=== PATIENT | female | born 1980 | race Two or more races ===

== ENCOUNTER → 2018-05-08 10:12 | Outpatient (CLI) | payer OTHER, SELFPAY ==
--- NOTE | 2018-05-08 10:19 | US_ITS ---
US soft tissue head and neck Ordering Physician: Brenda Trevino MD Patient Age: 37 years: Female HISTORY: ITS.REASON: LYMPHADENOPATHY OF HEAD AND NECK Palpable nodule at the right neck, one year TECHNIQUE: Ultrasound performed the neck with attention to the palpable area at the right neck COMPARISON :None FINDINGS . The palpable area corresponds with a lymph node appearing structure. This fairly benign-appearing node measured 1.2 cm in length x 1 cm transverse X 0.65 cm. AP Relatively minimal medullary fat evident but overall compatible with a benign lymph node. Cortex measures up to 3 mm thickness. If this palpable area should progress suggest follow-up ultrasound study in 3-[address] neck with contrast. Axial CT-provides a better overview of the neck to exclude other or other nodes or other features.. The right parotid glands appears homogeneous, measuring up to 3.4 cm in length as 1.3 cm AP. Right Submandibular gland of 3.5 cm x 1.2 cm. IMPRESSION: The palpable areas right neck corresponds with a moderate size lymph node measure up to 1.2 cm length x 0.65 cm AP. Overall reasonably benign-appearing lymph node. Can be followed . If this area should progress a follow-up study either ultrasound neck or CT neck be suggested 3-4 months.
== END ==
PROVIDERS: PCP Family Medicine; Visit Provider Family Medicine
DX: R59.1 Generalized enlarged lymph nodes (principal)
CPT/HCPCS: 76536

== ENCOUNTER → 2018-07-10 08:26 | Outpatient (CLI) | payer BC, SELFPAY ==
--- NOTE | 2018-07-10 08:31 | US_ITS ---
US abdomen limited History:Right upper quadrant pain Ordering Physician:Teddy Lao MD Patient Age: 37 years Comparison:None Findings: Pancreas:Unremarkable. No obvious mass or abnormal fluid collection. No ductal dilatation Liver:Unremarkable. No obvious mass or abnormal fluid collection. No ductal dilatation Right Kidney:Unremarkable. Normal size and echogenicity. No hydronephrosis Gallbladder:There are multiple gallstones present. No gallbladder wall thickening, pericholecystic fluid, or biliary dilatation is evident. The gallbladder is slightly distended at 11 x 3 cm. IMPRESSION: Cholelithiasis with mildly distended gallbladder.
== END ==
PROVIDERS: PCP Family Medicine; Visit Provider Family Medicine
DX: R10.11 Right upper quadrant pain (principal)
CPT/HCPCS: 76705

== ENCOUNTER → 2018-10-20 17:32 | Outpatient (CLI) | payer BC, SELFPAY ==
[2018-10-20 18:13] LABS: Basophils % 0.5 % (0.1-2.0); Eosinophils % 0.5 % (0.1-12.0); Hematocrit 41.9 % (37.0-47.0); Hemoglobin 13.8 g/dL (12.2-16.2); Lymphocytes % 30.3 % (10-50); Mean Corpuscular Hemoglobin 29.5 pg (27.0-31.2); Mean Corpuscular Volume 89.6 fl (81-99); Mean Platelet Volume 8.9 fl (7.4-10.4); Monocytes # 0.5 K/mm3 (0.1-1.0); Monocytes % 7.4 % (1.7-9.3); Neutrophils # 4.2 K/mm3 (1.8-7.8); Neutrophils % 61.4 % (37.0-80.0); Platelet Count 247 K/mm3 (142-424); Red Blood Count 4.68 M/mm3 (4.20-5.40); Red Cell Distribution Width 12.3 % (11.5-17.5); White Blood Count 6.8 K/mm3 (4.8-10.8)
[2018-10-20 19:21] LABS: Alanine Aminotransferase 32 U/L (12-78); Albumin Level 4.4 gm/dL (3.4-5.0); Albumin/Globulin Ratio 1.3 (1.1-1.8); Alkaline Phosphatase 106 U/L (46-116); Anion Gap 16.9 mEq/L (5-15); Aspartate Amino Transferase 23 U/L (15-37); Bilirubin,Total 0.6 mg/dL (0.2-1.0); Blood Urea Nitrogen 13 mg/dL (7-18); Calcium 9.4 mg/dL (8.5-10.1); Carbon Dioxide 25 mmol/L (21.0-32.0); Chloride 104 mmol/L (98-107); Creatinine,Serum 0.89 mg/dL (0.55-1.02); Estimated Glomerular Filt Rate 72 ml/min (>60); Free T4 (Free Thyroxine) 0.88 ng/dl (0.76-1.46); GFR (African American) 87 ML/MIN (>60); Globulin 3.4 gm/dl (1.3-3.2); Glucose 87 mg/dL (74-106); Magnesium 2.1 mg/dL (1.4-2.2); Potassium 4.9 mmoL/L (3.5-5.1); Sodium 141 mmol/L (136-145); Thyroid Stimulating Hormone 0.99 uIU/ml (0.358-3.740); Total Protein,Serum 7.8 gm/dL (6.4-8.2)
[2018-10-23 08:57] LABS: Vitamin B12 322 pg/mL (232-1245); Vitamin D 25 Hydroxy 26.3 ng/mL (30.0-100.0)
== END ==
PROVIDERS: Visit Provider Emergency Medicine
DX: R53.83 Other fatigue (principal); E55.9 Vitamin D deficiency, unspecified
CPT/HCPCS: 80053; 82607; 82652; 83735; 84439; 84443; 85025

== ENCOUNTER → 2019-09-17 12:56 | Outpatient (CLI) | payer BC, SELFPAY ==
--- NOTE | 2019-09-17 13:09 | MR_ITS ---
PROCEDURE: MR HIP RT WO CON CLINICAL INDICATION: RIGHT HIP PAIN Bilateral hip pain right worse than left with bursitis COMPARISON: [id number] CT abdomen pelvis w con from 07/08/2018 TECHNIQUE: Routine multiplanar multi echo sequences are performed without gadolinium enhancement. FINDINGS: No fracture or dislocation. No bony destructive process. No evidence of avascular necrosis. No significant osteoarthritic change. There is heterogeneous signal intensity of the generalized bony structures consistent with patchy red marrow replacement.. There is a small bilocular area of fluid signal intensity posterior to the right hip joint at the femoral acetabular junction. This measures approximately 14 mm and could be due to small bursa. Multiple follicles are present within the ovaries on both sides IMPRESSION: 1. No evidence of avascular necrosis or other acute bony anomaly. 2. Small loculated fluid collection posterior to the right hip suggesting bursitis Dictated by: Brigido Noel MD 09/19/2019 08:35 Electronically signed by Brigido Noel MD in [place] 09/19/2019 08:35
== END ==
PROVIDERS: PCP Physician Assistant; Visit Provider Family Medicine
DX: M25.551 Pain in right hip (principal)
CPT/HCPCS: 73721